=== PATIENT | female | born 1975 | race Caucasian/White ===

== ENCOUNTER 2018-11-27 21:24 | Emergency (ER) | payer OTHER ==
[~2018-11-27] VITALS: Ht 154.9 cm; Wt 74.8 kg
[~2018-11-27 21:24] MED LIST: DOXYCYCLINE 10100 MG PO; NOHOMEMEDICATIONS; NORCO 5-325 TA1 EACH PO
[2018-11-27] MEDS ORDERED: LISINOPRIL20 MG PO (21:29)
[2018-11-27] MEDS ORDERED: DOXYCYCLINE 10100 MG PO (21:36)
[2018-11-27 22:00] VITALS: BP 148/62
== END 2018-11-27 22:00 | disposition home or self-care (01) ==
LOC: ER 21:24
DX: L03.114 Cellulitis of left upper limb (principal); F17.210 Nicotine dependence, cigarettes, uncomplicated; Z88.0 Allergy status to penicillin; Z98.890 Other specified postprocedural states